=== PATIENT | female | born 1990 | race Two or more races ===

== ENCOUNTER 2019-06-09 18:17 | Emergency (ER) | payer OTHER ==
[~2019-06-09] VITALS: Ht 149.9 cm; Wt 62.1 kg
[2019-06-09 18:37] VITALS: BP 109/75
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
--- NOTE | 2019-06-09 19:08 | NUR ---
HAND-OFF: Report given to Amanda JONAS. patient is stable in bed
[2019-06-09] MEDS ORDERED: Methocarbamol 750mg tab ORAL ONE (20:00)
[2019-06-09] MEDS ORDERED: Acetaminophen 500mg (ES) tab ORAL ONE (20:00)
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
[2019-06-09] MEDS ORDERED: ROBAXIN-750750 MG PO (20:03)
[2019-06-09] MEDS ORDERED: IBUPROFEN600 MG ORAL (20:03)
[2019-06-09 20:22] VITALS: BP 113/79
[2019-06-09 20:23] VITALS: BP 113/79
--- NOTE | 2019-06-09 20:23 | NUR ---
ER DISCHARGE NOTE: Patient is cleared to be discharged per ERMD, pt is aox4, on room air, with stable vital signs. pt was given dc and prescription instructions, pt was able to verbalize understanding, pt id band removed without complications. pt is able to ambulate with steady gait. pt took all belongings.
== END 2019-06-09 22:21 | disposition home or self-care (01) ==
LOC: EMR 18:59
DX: S16.1XXA Strain of muscle, fascia and tendon at neck level, initial encounter (principal); V89.2XXA Person injured in unspecified motor-vehicle accident, traffic, initial encounter; M25.512 Pain in left shoulder; M25.511 Pain in right shoulder; M54.6 Pain in thoracic spine
CPT/HCPCS: 99282